=== PATIENT | female | born 1950 ===

== ENCOUNTER 2023-07-29 11:42 | Day surgery (SDC) | payer OTHER ==
[2023-07-29] MEDS ORDERED: FERRIC CARBOXYMALTOSE 750 MG in SODIUM CHLORIDE 250 ML IVPB ONE (12:00)
[2023-07-29 13:13] VITALS: BP 155/69; PULSE 77; RESP 18; TEMP 97.9
== END 2023-07-29 12:55 | disposition home or self-care (01) ==
LOC: JONCCHEMO 11:42 → J7W 11:44 → JONCCHEMO 12:55
PROVIDERS: ATTEND Internal Medicine Hematology & Oncology
PROC: 3E033GC Introduction of Other Therapeutic Substance into Peripheral Vein, Percutaneous Approach (ICD-10-PCS; principal; 2023-07-29)
DX: D50.9 Iron deficiency anemia, unspecified (principal)
CPT/HCPCS: 96365; J1439

== ENCOUNTER 2023-08-05 10:49 | Day surgery (SDC) | payer OTHER ==
[~2023-08-05 10:49] MED LIST: FERRIC CARBOXYMALTOSE 750 MG in SODIUM CHLORIDE 250 ML IVPB ONE
[2023-08-05 14:59] VITALS: BP 154/70; PULSE 81; RESP 20; TEMP 97.6
== END 2023-08-05 12:20 | disposition home or self-care (01) ==
LOC: J7W 10:49 → JONCNONCHE 10:49
PROVIDERS: ATTEND Internal Medicine Hematology & Oncology
PROC: 3E033GC Introduction of Other Therapeutic Substance into Peripheral Vein, Percutaneous Approach (ICD-10-PCS; principal; 2023-08-05)
DX: D50.9 Iron deficiency anemia, unspecified (principal)
CPT/HCPCS: 96365; J1439

== ENCOUNTER 2024-01-27 09:31 | Day surgery (SDC) | payer OTHER ==
[2024-01-27] MEDS: FERRIC CARBOXYMALTOSE 750 MG in SODIUM CHLORIDE 250 ML IVPB ONE (09:58)
[2024-01-27 17:14] VITALS: RESP 18; TEMP 98.3
[2024-01-27 17:21] VITALS: BP 171/72; PULSE 61
== END 2024-01-27 11:10 | disposition home or self-care (01) ==
LOC: J7W 09:31 → JONCNONCHE 09:31
PROVIDERS: ATTEND Internal Medicine Hematology & Oncology
PROC: 3E033GC Introduction of Other Therapeutic Substance into Peripheral Vein, Percutaneous Approach (ICD-10-PCS; principal; 2024-01-27)
DX: D50.9 Iron deficiency anemia, unspecified (principal)
CPT/HCPCS: 96365; J1439

== ENCOUNTER 2024-07-22 09:31 | Day surgery (SDC) | payer OTHER ==
[2024-07-22] MEDS: FERRIC CARBOXYMALTOSE 750 MG in SODIUM CHLORIDE 250 ML IVPB ONE (09:52)
[2024-07-22] MEDS ORDERED: LIDOCAINE HCL 1%, 10 MG/ML (20ML VIAL) ID ONE (10:00)
[2024-07-22] MEDS ORDERED: GOSERELIN ACETATE 3.6 MG IMPLANT SYRINGE SQ ONE (10:00)
[2024-07-22 15:47] VITALS: RESP 20; TEMP 98.2
[2024-07-22 15:56] VITALS: BP 144/57; PULSE 78
== END 2024-07-22 11:00 | disposition home or self-care (01) ==
LOC: JONCCHEMO 09:31 → J7W 09:36 → JONCCHEMO 11:00
PROVIDERS: ATTEND Internal Medicine Hematology & Oncology
PROC: 3E033GC Introduction of Other Therapeutic Substance into Peripheral Vein, Percutaneous Approach (ICD-10-PCS; principal; 2024-07-22)
DX: D50.9 Iron deficiency anemia, unspecified (principal)
CPT/HCPCS: 96365; J1439

== ENCOUNTER 2024-07-29 09:29 | Day surgery (SDC) | payer OTHER ==
[2024-07-29] MEDS: FERRIC CARBOXYMALTOSE 750 MG in SODIUM CHLORIDE 250 ML IVPB ONE (10:05)
[2024-07-29 15:41] VITALS: BP 147/60; PULSE 67; RESP 20; TEMP 97.9
== END 2024-07-29 11:10 | disposition home or self-care (01) ==
LOC: JONCCHEMO 09:29 → J7W 09:30 → JONCCHEMO 11:10
PROVIDERS: ATTEND Internal Medicine Hematology & Oncology
PROC: 3E033GC Introduction of Other Therapeutic Substance into Peripheral Vein, Percutaneous Approach (ICD-10-PCS; principal; 2024-07-29)
DX: D50.9 Iron deficiency anemia, unspecified (principal)
CPT/HCPCS: 96365; J1439